=== PATIENT | male | born 1990 | race Caucasian/White ===

== ENCOUNTER 2017-01-07 21:23 | Emergency (ER) | payer SELFPAY ==
[2017-01-07 21:27] VITALS: BP 121/75; PULSE 69; RESP 16; TEMP 99; O2SAT 100
[2017-01-07] MEDS ORDERED: CEPH-460 PO (22:50)
[2017-01-07] MEDS ORDERED: BACT800T5 PO (22:50)
--- NOTE | 2017-01-07 22:55 | PD ---
HPI Chief Complaint: Skin Problem Time Seen by Provider: 22:46 Travel History International Travel<30 days: No Contact w/Intl Traveler<30days: No Traveled to known affect area: No History of Present Illness HPI 26-year-old white male presents to emergency department with a one-week history of left knee swelling, redness, pain and discharge. He states that he just moved to [place] from [place] and does not have a primary care doctor. Symptoms are moderate. He denies any history of skin infections in the past. He is up-to-date with immunizations. No fever chills. PFSH Past Medical History Medical History: Denies Significant Hx Tetanus Vaccination: < 5 Years Past Surgical History Surgical History: No Previous Surgery Social History Alcohol Use: Yes Tobacco Use: Yes Allergies-Medications (Allergen,Severity, Reaction): Coded Allergies: No Known Allergies (Unverified , 01/07/17) Review of Systems General / Constitutional: No: Fever Eyes: No: Visual changes HENT: No: Headaches Cardiovascular: No: Chest Pain or Discomfort Respiratory: No: Shortness of Breath Gastrointestinal: No: Abdominal Pain Genitourinary: No: Dysuria Musculoskeletal: No: Pain Skin: No Rash Neurologic: No: Weakness Psychiatric: No: Depression Endocrine: No: Polydipsia Hematologic/Lymphatic: No: Easy Bruising Physical Exam Narrative GENERAL: This is a well-nourished, well-developed patient, in no apparent distress. SKIN: Patient has an area of erythema, edema or induration and discharged to the left anterior knee. There is no fluctuance or pointing. Positive purulent drainage.. Warm and dry. HEAD: Atraumatic. Normocephalic. EYES: PERRL, EOMI, no discharge or injection. No scleral icterus. EARS: Clear NOSE: Nasal turbinates appear normal. THROAT: Mucosa pink and moist. Airway patent. NECK: Trachea midline. supple, moves head freely. LUNGS: Clear to auscultation. CV: Regular in rhythm. ABDOMEN: Soft nontender. EXT: No clubbing cyanosis. Mild edema of the peripatellar region of the left knee. Data Data Last Documented VS Vital Signs Date Time Temp Pulse Resp B/P (MAP) Pulse Ox O2 Delivery O2 Flow Rate FiO2 01/07/17 21:27 99.0 69 16 121/75 (90) 100 Room Air Orders Orders Cephalexin (Keflex) (01/07/17 23:00) Sulfamet-Trimeth Ds 800-160 Mg (Bactrim (01/07/17 23:00) Ed Discharge Order (01/07/17 22:49) MDM Medical Decision Making Medical Screen Exam Complete: Yes Emergency Medical Condition: Yes Medical Record Reviewed: Yes Differential Diagnosis MDM: High Differential diagnoses: Abscess, folliculitis, cellulitis, lymphangitis, abrasion, contact dermatitis Narrative Course Patient has a superficial abscess to the left knee. It is open and draining. Patient given Keflex 1 g and Bactrim DS by mouth. Diagnosis Primary Impression: Abscess of left knee Referrals: [facility] 2 days Patient Instructions: General Instructions Additional Instructions: Rest. Elevation. keep clean and dry. Warm compresses. Daily wound care with soap, water and Neosporin. Three Advil every 6 hours. Keflex and Bactrim DS. [facility] in 2 days. Return to the ER for any problems. Med/Other Pt SpecificInfo: Prescription(s) given, Wound Care Scripts Sulfamethoxazole-Trimethoprim (Bactrim DS) 800-160 Mg Tab 1 TAB PO BID for Infection, #20 TAB 0 Refills Prov: Valencia Muñoz DO 01/07/17 Cephalexin (Keflex) 500 Mg Cap 500 MG PO Q6H for Infection for 10 Days, #40 CAP 0 Refills Prov: Valencia Muñoz DO 01/07/17 Disposition: 01 DISCHARGE HOME Condition: Stable Dashawn Rosa Jan 07, 2017 22:55
[2017-01-07] MEDS ORDERED: CEPHALEXIN MONOHYDRATE 500 MG CAP PO ONE (23:00)
[2017-01-07] MEDS ORDERED: SULFAMETHOXAZOLE-TRIMETHOPRIM DS 800-160 MG TAB PO ONE (23:00)
== END 2017-01-07 23:12 | disposition home or self-care (01) ==
LOC: NEPK 21:23
DX: L02.416 Cutaneous abscess of left lower limb (principal); Z72.0 Tobacco use
CPT/HCPCS: 99284

== ENCOUNTER 2017-01-10 16:02 | Emergency (ER) | payer SELFPAY ==
[~2017-01-10] VITALS: Ht 188 cm; Wt 100.0 kg
[~2017-01-10 16:02] MED LIST: BACT800T5 PO; CEPH-460 PO
[2017-01-10 16:04] VITALS: BP 130/91; PULSE 79; RESP 16; TEMP 98.3; O2SAT 98
--- NOTE | 2017-01-10 17:57 | PD ---
HPI . Left knee cellulitis Chief Complaint: Skin Problem Time Seen by Provider: 17:35 Travel History International Travel<30 days: No Contact w/Intl Traveler<30days: No Traveled to known affect area: No History of Present Illness HPI 26-year-old male patient presents emergency department for evaluation of left knee cellulitis. Patient was seen at our facility 2 days ago and prescribed Bactrim and Keflex. Patient has only been taking these medications for a couple days but states he feels like the wound is getting worse because the dressing he applied accidently ripped off the top layer skin. Patient has full range of motion of the knee. There is no signs of effusion. Patient denies any fevers, chills, malaise, shortness breath, chest pain. Patient has no major medical history. PFSH Past Medical History Medical History: Denies Significant Hx Diminished Hearing: No Influenza Vaccination: No Past Surgical History Surgical History: No Previous Surgery Social History Alcohol Use: No Tobacco Use: No Substance Use: No Allergies-Medications (Allergen,Severity, Reaction): Coded Allergies: No Known Allergies (Unverified , 01/07/17) Reported Meds & Prescriptions Reported Meds & Active Scripts Active Bactrim DS (Sulfamethoxazole-Trimethoprim) 800-160 Mg Tab 1 Tab PO BID Keflex (Cephalexin) 500 Mg Cap 500 Mg PO Q6H 10 Days Review of Systems Except as stated in HPI: all other systems reviewed are Neg Physical Exam Narrative GENERAL: Well-nourished, well-developed 26-year-old male patient in no acute distress. Nontoxic appearing. SKIN: Mild erythema with small amount of purulent drainage from the center of the erythematous region noted to the left patellar aspect. HEAD: Normocephalic. Atraumatic. EYES: No scleral icterus. No injection or drainage. NECK: Supple, trachea midline. No JVD or lymphadenopathy. CARDIOVASCULAR: Regular rate and rhythm without murmurs, gallops, or rubs. RESPIRATORY: Breath sounds equal bilaterally. No accessory muscle use. GASTROINTESTINAL: Abdomen soft, non-tender, nondistended. MUSCULOSKELETAL: Full range of motion to left knee. No recent deformity, ecchymosis or cyanosis. Data Data Last Documented VS Vital Signs Date Time Temp Pulse Resp B/P (MAP) Pulse Ox O2 Delivery O2 Flow Rate FiO2 01/10/17 16:04 98.3 79 16 130/91 (104) 98 Orders Orders Knee, Complete (4vws) (01/10/17 17:48) Wound Culture And Gram Stain (01/10/17 17:48) Ed Discharge Order (01/10/17 18:38) MDM Medical Decision Making Medical Screen Exam Complete: Yes Emergency Medical Condition: Yes Differential Diagnosis Differential diagnosis include but not limited to cellulitis, abscess, osteomyelitis Narrative Course 26-year-old male patient presents emergency department after being evaluated 2 days ago and discharged home with Bactrim and Keflex. Patient is only taking the Bactrim and Keflex for 2 days. Patient states he felt like the wound was getting worse because the skin was ripped off the top from the dressing he applied. There is Full range motion of his left knee. There is no signs or symptoms of effusion or septic arthritis. X-ray of the left knee ordered. Ice applied to the left knee. Patient will be discharged home with instructions to continue his antibiotic therapy and return to the emergency Department with any worsening condition. Patient will be given instructions on daily dressing changes and keep the wound clean and dry. Wound culture obtained during this visit. Last Impressions Knee X-Ray 01/10/171747 Signed Impressions: Service Date/Time: Tuesday, January 10, 2017 18:00 - CONCLUSION: 1. Mild prominence of the prepatellar soft tissues possibly representing a prepatellar bursitis or cellulitis. 2. Osseous structures are all intact. No suprapatellar effusion. Chito Renae MD Diagnosis Primary Impression: Cellulitis of knee, left Patient Instructions: Cellulitis (ED), General Instructions Additional Instructions: Please return to emergency department if your symptoms return or worsen. Follow up with your primary care provider. Continue to take take medications as prescribed. May take ibuprofen or Tylenol as needed for pain or fever. May ice knee to improve swelling. Keep wound clean and dry. Daily Dressing changes Med/Other Pt SpecificInfo: Wound Care Disposition: DISCHARGE HOME Condition: Stable Hemalatha Ibrahim NICOLÁS Jan 10, 2017 17:57
--- NOTE | 2017-01-10 18:20 | RADRPT ---
EXAM DATE/TIME: 01/10/2017 18:00 [facility] COMPARISON: No previous studies available for comparison. INDICATIONS : Left knee pain,swelling, redness with drainage, denies injury MEDICAL HISTORY : Infected left knee SURGICAL HISTORY : None. ENCOUNTER: Initial ACUITY: 2 weeks PAIN SCORE: 8/10 LOCATION: Left Knee FINDINGS: Four view examination of the left knee demonstrates no evidence of fracture or dislocation. Bony min eralization is normal. The articular surfaces are intact. Arrows placed by the technologist presuma willow delineate the area of clinical abnormality in the infrapatellar superficial tissues. Prepatellar soft tissues do appear to be somewhat prominent possibly representing a prepatellar bursitis. No supr apatellar effusion. CONCLUSION: 1. Mild prominence of the prepatellar soft tissues possibly representing a prepatellar bursitis or ce llulitis. 2. Osseous structures are all intact. No suprapatellar effusion. Chito Renae MD on January 10, 2017 at 18:14 Board Certified Radiologist. This report was verified electronically.
[2017-01-10 19:13] VITALS: BP 117/87
== END 2017-01-10 19:14 | disposition home or self-care (01) ==
LOC: NEPD 16:02
DX: L03.116 Cellulitis of left lower limb (principal); B95.61 Methicillin susceptible Staphylococcus aureus infection as the cause of diseases classified elsewhere
CPT/HCPCS: 73564; 86403; 87070; 87186; 87205; 99283